=== PATIENT | male | born 1950 | race Caucasian/White ===

== ENCOUNTER 2019-01-10 12:10 | Outpatient (CLI) | payer MEDICARE, BC ==
--- NOTE | 2019-01-10 12:57 | RAD ---
LEFT FEMUR TWO VIEWS: History: Left lower extremity pain. FINDINGS/IMPRESSION: The left femur is intact and demonstrates no bony abnormality. POS: TPC
--- NOTE | 2019-01-10 13:30 | RAD ---
LUMBAR SPINE THREE VIEWS: History: Low back pain. FINDINGS: Degenerative changes are seen with mild scoliosis. No fracture, subluxation, or bony destruction is s een. There are vascular calcifications. There is suggestion of a 5 cm aneurysm of the abdominal aorta. Thi s should be further evaluated with ultrasound. Code T POS: TPC
== END 2019-01-10 12:11 | disposition home or self-care (01) ==
LOC: BICRAD 12:10
PROVIDERS: ATTEND Specialist
DX: I70.222 Atherosclerosis of native arteries of extremities with rest pain, left leg (principal); M54.5 Low back pain
CPT/HCPCS: 72100

== ENCOUNTER 2019-01-20 09:03 | Outpatient (CLI) | payer MEDICARE, BC ==
--- NOTE | 2019-01-20 10:07 | ULT ---
ULTRASOUND ABDOMEN COMPLETE: DATE: 01/20/2019. HISTORY: Abdominal aortic aneurysm in a 68-year-old male. FINDINGS: Liver: Echogenicity within normal limits. Gallbladder: No gallstones or mural thickening. Common duct: Not measured. No christian dilation. Spleen: No splenomegaly. Pancreas: Obscured by shadowing from bowel gas. Kidneys: Minimal/mild dilation of bilateral renal collecting systems. Abdominal aorta: Proximal portion not visualized. Mid portion 2.1 x 1.8 cm. Distal portion 3.6 x 4. 1 cm. The craniocaudal length of this aneurysm is 5.7 cm. Inferior vena cava: Dilated along with intrahepatic veins. IMPRESSION: 1. Infrarenal fusiform distal abdominal aortic aneurysm measured as 3.6 x 4.1 cm. 2. Dilation of inferior vena cava and hepatic veins is evidence for congestive heart failure. RANJAN Tracy POS: ANNA
== END 2019-01-20 09:04 | disposition home or self-care (01) ==
LOC: SCSULT 09:03
PROVIDERS: ATTEND Specialist
DX: I71.4 Abdominal aortic aneurysm, without rupture (principal); I50.9 Heart failure, unspecified
CPT/HCPCS: 76700

== ENCOUNTER 2020-03-28 06:15 | Outpatient (CLI) | payer MEDICARE, BC, OTHER ==
[2020-03-28 10:35] LABS: #Basophils 0.1 thou/uL (0.0-0.2); #Eosinphils 0.2 thou/uL (0.0-0.7); #Lymphocytes 0.6 thou/uL (1.20-3.40); #Monocytes 0.7 thou/uL (0.11-0.59); #Neutrophils 6.4 thou/uL (1.40-6.50); %Basophils 0.6 % (0.0-1.0); %Lymphocytes 8.1 % (21.0-51.0); %Monocytes 8.4 % (0.0-10.0); %Neutrophils 80.9 % (42.0-75.0); Hemoglobin 15.4 g/dL (14.0-18.0); Mean Corpuscular HGB CONC 33.6 g/dL (32.0-36.0); Mean Corpuscular Hemoglobin 33.2 pg (27.0-31.0); Mean Platelet Volume 7.6 fL (7.4-10.4); Platelet Count 184 thou/uL (130-400); RBC Distribution Width 12.5 % (11.5-14.5); Red Blood Cell (RBC) Count 4.64 mill/uL (4.70-6.10); White Blood Cell (WBC) Count 7.9 thou/uL (4.8-10.8)
[2020-03-28 10:55] LABS: ALT (SGPT) 12 U/L (8-55); AST (SGOT) 14 U/L (5-34); Albumin 4.1 g/dL (3.4-4.8); Alkaline Phosphatase 79 U/L (40-110); Anion Gap 14 mmol/L (10-20); BUN (Urea Nitrogen) 14 mg/dL (8.4-25.7); Bilirubin, Total 1.9 mg/dL (0.2-1.2); Calc. Creatinine Clearance 0 mL/min (70-130); Calcium 9.6 mg/dL (7.8-10.44); Carbon Dioxide 31 mmol/L (23-31); Cardiac Risk 2.6 (Less than 4.5); Chloride 100 mmol/L (98-107); Cholesterol 112 mg/dl (< 200 Desired); Estimated GFR-MDRD 83; Globulin 2.6 g/dL (2.4-3.5); Glucose 84 mg/dL (80-115); HDL Cholesterol 43 mg/dL (>60 Neg Risk); LDL Cholesterol, Calculated 56 mg/dL; Protein, Total 6.7 g/dL (5.8-8.1); Sodium 142 mmol/L (136-145); Triglycerides 65 mg/dL (Less than 150)
[2020-03-29 14:25] LABS: SARS-CoV-2 MS2 Positive; SARS-CoV-2 N Gene Negative; SARS-CoV-2 S Gene Negative; SARS-CoV-2 orf1ab Negative
== END 2020-03-28 06:16 | disposition home or self-care (01) ==
LOC: LABBT 06:15
PROVIDERS: ATTEND Internal Medicine Cardiovascular Disease
DX: Z01.812 Encounter for preprocedural laboratory examination (principal); Z11.59 Encounter for screening for other viral diseases; R94.39 Abnormal result of other cardiovascular function study
CPT/HCPCS: 80053; 80061; 85025; U0003; 87635

== ENCOUNTER 2020-04-01 06:01 | Day surgery (SDC) | payer MEDICARE, BC ==
[2020-03-27 16:13] VITALS: BMI 24.3
[2020-04-01] MEDS ORDERED: Heparin 0 ML ONE (06:32)
[2020-04-01] MEDS ORDERED: Heparin 10,000 UNITS/1 ML VIAL ONE (06:32)
== END 2020-04-01 08:05 | disposition home or self-care (01) ==
LOC: CCL 06:01
PROVIDERS: ATTEND Internal Medicine Cardiovascular Disease
DX: R94.39 Abnormal result of other cardiovascular function study (principal); Z53.9 Procedure and treatment not carried out, unspecified reason; Z79.01 Long term (current) use of anticoagulants; Z79.899 Other long term (current) drug therapy; Z88.5 Allergy status to narcotic agent; Z95.1 Presence of aortocoronary bypass graft
CPT/HCPCS: J1644

== ENCOUNTER 2020-04-04 06:54 | Outpatient (CLI) | payer MEDICARE, BC, OTHER ==
[2020-04-04 14:54] LABS: ALT (SGPT) 15 U/L (8-55); AST (SGOT) 18 U/L (5-34); Alkaline Phosphatase 74 U/L (40-110); Anion Gap 12 mmol/L (10-20); BUN (Urea Nitrogen) 16 mg/dL (8.4-25.7); Bilirubin, Total 1.2 mg/dL (0.2-1.2); Calc. Creatinine Clearance 0 mL/min (70-130); Calcium 9.2 mg/dL (7.8-10.44); Carbon Dioxide 30 mmol/L (23-31); Chloride 102 mmol/L (98-107); Estimated GFR-MDRD 78; Globulin 2.6 g/dL (2.4-3.5); Glucose 100 mg/dL (80-115); Potassium 3.2 mmol/L (3.5-5.1); Protein, Total 6.6 g/dL (5.8-8.1); Sodium 141 mmol/L (136-145)
[2020-04-05 12:06] LABS: SARS-CoV-2 MS2 Positive; SARS-CoV-2 N Gene Negative; SARS-CoV-2 S Gene Negative; SARS-CoV-2 orf1ab Negative
== END 2020-04-04 06:55 | disposition home or self-care (01) ==
LOC: LABBT 06:54
PROVIDERS: ATTEND Internal Medicine Cardiovascular Disease
DX: Z01.812 Encounter for preprocedural laboratory examination (principal); Z11.59 Encounter for screening for other viral diseases; R94.39 Abnormal result of other cardiovascular function study
CPT/HCPCS: 80053; U0003; 87635

== ENCOUNTER 2020-04-08 05:52 | Day surgery (SDC) | payer MEDICARE, BC ==
[2020-04-03 09:49] VITALS: BMI 24.3
[2020-04-08] MEDS ORDERED: Heparin 10,000 UNITS/1 ML VIAL ONE (06:34)
[2020-04-08] MEDS ORDERED: Fentanyl 100 MCG/2 ML VIAL ONE (07:01)
[2020-04-08] MEDS ORDERED: Midazolam HCl 2 mg/2 ml Vial ONE (07:01)
[2020-04-08] MEDS ORDERED: Protamine Sulfate 50 MG/5 ML VIAL ONE (08:07)
[2020-04-08] MEDS ORDERED: Iopamidol 370 76% 100 ML VIAL ONE (09:31)
[2020-04-08] MEDS ORDERED: Iopamidol 370 76% 50 ML VIAL FS ONE (09:31)
[2020-04-08] MEDS ORDERED: Nitroglycerin 0.4 MG TAB (25 Tab Bottle) SL PRN (09:50)
[2020-04-08] MEDS ORDERED: traMADol HCl 50 MG TAB PO PRN (09:50)
[2020-04-08] MEDS ORDERED: Sodium Chloride 0.9% 1,000 ML IV SCH (09:50)
[2020-04-08] MEDS ORDERED: Potassium Chloride 20 MEQ TAB PO SCH (10:00)
== END 2020-04-08 15:35 | disposition home or self-care (01) ==
LOC: CCL 05:52
PROVIDERS: ATTEND Internal Medicine Cardiovascular Disease
PROC: 4A023N7 Measurement of Cardiac Sampling and Pressure, Left Heart, Percutaneous Approach (ICD-10-PCS; principal; 2020-04-08)
PROC: B2111ZZ Fluoroscopy of Multiple Coronary Arteries using Low Osmolar Contrast (ICD-10-PCS; 2020-04-08)
PROC: B2181ZZ Fluoroscopy of Left Internal Mammary Bypass Graft using Low Osmolar Contrast (ICD-10-PCS; 2020-04-08)
PROC: B2131ZZ Fluoroscopy of Multiple Coronary Artery Bypass Grafts using Low Osmolar Contrast (ICD-10-PCS; 2020-04-08)
DX: I25.10 Atherosclerotic heart disease of native coronary artery without angina pectoris (principal); I25.82 Chronic total occlusion of coronary artery; I34.0 Nonrheumatic mitral (valve) insufficiency; E78.5 Hyperlipidemia, unspecified; I11.0 Hypertensive heart disease with heart failure; I50.9 Heart failure, unspecified; I25.2 Old myocardial infarction; I25.5 Ischemic cardiomyopathy; I48.19 Other persistent atrial fibrillation; J44.9 Chronic obstructive pulmonary disease, unspecified; E78.00 Pure hypercholesterolemia, unspecified; I47.2 Ventricular tachycardia; Z86.73 Personal history of transient ischemic attack (TIA), and cerebral infarction without residual deficits; Z87.891 Personal history of nicotine dependence; Z79.01 Long term (current) use of anticoagulants; Z79.899 Other long term (current) drug therapy; Z88.5 Allergy status to narcotic agent; Z95.1 Presence of aortocoronary bypass graft; Z95.810 Presence of automatic (implantable) cardiac defibrillator
CPT/HCPCS: 85347; 93459; 93567; 99152; 99153; J1644; J2250; J2720; J3010; Q9967

== ENCOUNTER 2020-04-12 05:34 | Outpatient (CLI) | payer MEDICARE, BC, OTHER ==
[2020-04-12 12:47] LABS: #Eosinphils 0.2 thou/uL (0.0-0.7); #Lymphocytes 0.7 thou/uL (1.20-3.40); #Monocytes 0.6 thou/uL (0.11-0.59); #Neutrophils 6.8 thou/uL (1.40-6.50); %Basophils 0.5 % (0.0-1.0); %Eosinophils 1.9 % (0.0-10.0); %Lymphocytes 7.9 % (21.0-51.0); %Monocytes 7.4 % (0.0-10.0); %Neutrophils 82.3 % (42.0-75.0); Hemoglobin 15.9 g/dL (14.0-18.0); Mean Corpuscular HGB CONC 33.7 g/dL (32.0-36.0); Mean Corpuscular Hemoglobin 33.7 pg (27.0-31.0); Mean Platelet Volume 7.5 fL (7.4-10.4); Platelet Count 177 thou/uL (130-400); RBC Distribution Width 12.4 % (11.5-14.5); Red Blood Cell (RBC) Count 4.74 mill/uL (4.70-6.10); White Blood Cell (WBC) Count 8.2 thou/uL (4.8-10.8)
[2020-04-12 12:50] LABS: Anion Gap 10 mmol/L (10-20); BUN (Urea Nitrogen) 13 mg/dL (8.4-25.7); Calc. Creatinine Clearance 0 mL/min (70-130); Calcium 9.2 mg/dL (7.8-10.44); Carbon Dioxide 31 mmol/L (23-31); Chloride 103 mmol/L (98-107); Estimated GFR-MDRD 79; Glucose 100 mg/dL (80-115); Potassium 3.3 mmol/L (3.5-5.1); Sodium 141 mmol/L (136-145)
[2020-04-13 12:16] LABS: SARS-CoV-2 MS2 Positive; SARS-CoV-2 N Gene Negative; SARS-CoV-2 S Gene Negative; SARS-CoV-2 orf1ab Negative
== END 2020-04-12 05:35 | disposition home or self-care (01) ==
LOC: LABBT 05:34
PROVIDERS: ATTEND Specialist
DX: Z01.812 Encounter for preprocedural laboratory examination (principal); Z11.59 Encounter for screening for other viral diseases; K40.90 Unilateral inguinal hernia, without obstruction or gangrene, not specified as recurrent; K43.2 Incisional hernia without obstruction or gangrene
CPT/HCPCS: 80048; 85025; U0003; 87635

== ENCOUNTER 2020-04-17 10:55 | Day surgery (SDC) | payer MEDICARE, BC ==
[2020-04-10 10:14] VITALS: BMI 25.7
[~2020-04-17 10:55] MED LIST: Dexamethasone 20 MG/5 ML VIAL ONE; Lidocaine 1% PF 5 ML VIAL ONE; Ondansetron PF 4 MG/2 ML Vial ONE; PROPOFOL 200 MG/20 ML VIAL ONE; Rocuronium Bromide 10 MG/ML (10ML VIAL) ONE
[2020-04-17] MEDS ORDERED: Acetaminophen 500 MG TAB ONE (11:15)
[2020-04-17] MEDS ORDERED: Lidocaine 1% w/Epinephrine 1:100K 20 ML VIAL ONE (14:11)
[2020-04-17] MEDS ORDERED: Bupivacaine PF 0.5% 30 ML VIAL ONE (14:11)
[2020-04-17] MEDS ORDERED: Fentanyl 100 MCG/2 ML VIAL ONE (14:15)
--- NOTE | 2020-04-17 17:53 | OP ---
DATE OF PROCEDURE: 04/17/2020 PREOPERATIVE DIAGNOSES: 1. Left inguinal hernia, indirect. 2. Right subxiphoid ventral hernia. 3. Left small finger skin lesion. PROCEDURES PERFORMED: 1. Robot laparoscopic mesh repair, large mesh, left inguinal hernia. 2. Right subxiphoid open hernia repair without mesh. 3. Biopsy of left small finger lesion for dermatology use. ANESTHESIA: General, local with 0.5% Marcaine 30 mL, mixed with 1% Xylocaine with epinephrine 20 mL, total volume used. DESCRIPTION OF PROCEDURE: The patient was taken to the operating room where under general anesthesia, Pretty catheter placed at the beginning of the procedure and removed at the end. Abdomen was prepared with ChloraPrep and draped in routine fashion. A supraumbilical pneumoperitoneum to 15 mmHg obtained with a Veress needle, replaced with an 11 mm balloon port. Left lateral and right lateral abdominal incision was made in the mid abdomen just above the umbilical plane and 8-mm port was placed. Robot was docked, positioned and robot laparoscopic inguinal hernia repair undertaken. Right groin without hernia. Left groin revealed a large indirect left inguinal hernia. An incision was made for peritoneal flap from the midline to the anterior superior iliac spine on the left, dropping the peritoneal flap medially and laterally, identifying Maxwell ligament medially. Dissection was carried out, freeing the hernia sac from the cord structures and a large lipoma of the cord. Once this was dissected free at least 10 cm, the cord structures were skeletonized. A large mesh was inserted, properly positioned, secured to Maxwell ligament with a 3-0 Vicryl and to the anterior abdominal wall to the patient's left of the inferior epigastric vessels with 3-0 Vicryl. Mesh was well oriented and well positioned. The large hernia sac was laid on top of the mesh as the peritoneal flap closed with #3-0 V-Loc suture. Once this was completed, the needles were retrieved. Pneumoperitoneum reduced. All instruments were removed. All skin incisions were approximated with subdermal 4-0 Monocryl and Bokeelia glue applied. Right subxiphoid incisional hernia then identified. A transverse skin incision made, carried down to skin and subcutaneous tissue, hernia sac dissected free, excised and the fascial defect closed with [id number] type fashion with interrupted suture of 0 PDS suture. Subcutaneous tissue was approximated with 3-0 Monocryl, skin with subdermal 4-0 Monocryl and Bokeelia glue applied. Left small finger was prepared with Betadine and this verrucous, probably a wart was biopsied, removing the topical surface for Dermatology request. Telfa applied. The patient tolerated the procedure well. Job ID: [id number]
--- NOTE | 2020-04-18 12:33 | EKG ---
Test Reason : PREOP Blood Pressure : / mmHG Vent. Rate : 071 BPM Atrial Rate : 023 BPM P-R Int : 000 ms QRS Dur : 204 ms QT Int : 480 ms P-R-T Axes : 000 016 022 degrees QTc Int : 521 ms Poor data quality, interpretation may be adversely affected Electronic ventricular pacemaker When compared with ECG of 29-APR-2017 14:49, Vent. rate has decreased BY 2 BPM Confirmed by CECILIA RIVERO, . SMarcus ([id number]) on 04/18/2020 12:33:35 PM Referred By: FAIZA Confirmed By:DR. Faye BROOKS MD
== END 2020-04-17 20:05 | disposition home or self-care (01) ==
LOC: SDC 10:55
PROVIDERS: ATTEND Specialist
PROC: 0YU54JZ Supplement Right Inguinal Region with Synthetic Substitute, Percutaneous Endoscopic Approach (ICD-10-PCS; principal; 2020-04-17)
PROC: 0WQF0ZZ Repair Abdominal Wall, Open Approach (ICD-10-PCS; 2020-04-17)
PROC: 0HBGXZZ Excision of Left Hand Skin, External Approach (ICD-10-PCS; 2020-04-17)
DX: K40.90 Unilateral inguinal hernia, without obstruction or gangrene, not specified as recurrent (principal); K43.2 Incisional hernia without obstruction or gangrene; B07.9 Viral wart, unspecified; Z88.5 Allergy status to narcotic agent; Z95.5 Presence of coronary angioplasty implant and graft
CPT/HCPCS: 11200; 49560; 49650; 93005; C1781; 88305; 93010; J0690; J1100; J2001; J2405; J2704; J3010; S0020